=== PATIENT | female | born 1975 | race Asian ===

== ENCOUNTER 2017-09-10 14:06 | Emergency (ER) | payer OTHER | END 2017-09-10 14:45 | disposition home or self-care (01) | LOC: SCSER 14:06 | DX: J04.0 Acute laryngitis (principal); B34.9 Viral infection, unspecified | CPT/HCPCS: 99282 ==

== ENCOUNTER 2022-07-23 02:47 | Inpatient (IN) | payer OTHER, BC ==
[2022-07-23 03:51] VITALS: BMI 20.2
[2022-07-23] MEDS ORDERED: Morphine 4 MG/ML VIAL SLOW IVP PRN ×2 (05:12)
[2022-07-23] MEDS ORDERED: Ondansetron PF 4 MG/2 ML Vial IVP PRN (05:12)
[2022-07-23] MEDS ORDERED: Promethazine HCl 25 MG/ML VIAL IM PRN ×2 (05:12→16:47)
[2022-07-23] MEDS ORDERED: Rib Fracture Protocol IV SCH (05:15)
[2022-07-23] MEDS ORDERED: traMADol HCl 50 MG TAB PO PRN (05:16)
[2022-07-23] MEDS ORDERED: Cyclobenzaprine 10 MG TAB PO PRN (05:16)
[2022-07-23] MEDS: Sodium Chloride 0.9% 1,000 ML IV SCH ×3 (06:11→20:35)
[2022-07-23] MEDS: Acetaminophen 500 MG TAB PO SCH ×2 (06:12→12:06)
[2022-07-23] MEDS: traMADol HCl 50 MG TAB PO SCH ×2 (06:14→12:06)
[2022-07-23 06:19] LABS: #Lymphocytes 0.7 thou/uL (1.20-3.40); #Monocytes 0.7 thou/uL (0.11-0.59); #Neutrophils 11.2 thou/uL (1.40-6.50); %Eosinophils 0.1 % (0.0-10.0); %Lymphocytes 5.5 % (21.0-51.0); %Monocytes 5.2 % (0.0-10.0); %Neutrophils 89.2 % (42.0-75.0); Mean Corpuscular HGB CONC 31.4 g/dL (32.0-36.0); Mean Corpuscular Hemoglobin 27.7 pg (27.0-31.0); Mean Platelet Volume 7.6 fL (7.4-10.4); Platelet Count 256 10x3/uL (130-400); RBC Distribution Width 13.4 % (11.5-14.5); White Blood Cell (WBC) Count 12.5 10x3/uL (4.8-10.8)
[2022-07-23 06:24] LABS: PTT 31.8 sec (22.9-36.1); Prothrombin Time 13.6 sec (12.0-14.7)
[2022-07-23 06:36] LABS: Anion Gap 12 mmol/L (10-20); BUN (Urea Nitrogen) 9 mg/dL (7.0-18.7); Calc. Creatinine Clearance 91 mL/min (70-130); Calcium 8.2 mg/dL (7.8-10.44); Carbon Dioxide 21 mmol/L (22-29); Chloride 107 mmol/L (98-107); Estimated GFR 108; Glucose 102 mg/dL (70-105); Magnesium 1.8 mg/dL (1.6-2.6); Phosphorus 3.1 mg/dL (2.3-4.7); Potassium 4.3 mmol/L (3.5-5.1); Sodium 136 mmol/L (136-145)
[2022-07-23] MEDS ORDERED: Famotidine/PF 20 mg/2ml Vial SLOW IVP SCH (09:00)
[2022-07-23] MEDS ORDERED: TETANUS, DIPHTHERIA TOX,ADULT (TDVAX) 0.5 ML VIAL IM ONE (09:00)
[2022-07-23] MEDS: Polyethylene Glycol 3350 17 GM Packet PO SCH (09:22)
[2022-07-23] MEDS: Senokot S 8.6-50 MG TAB PO SCH ×2 (09:22→20:29)
[2022-07-23] MEDS: Gabapentin 300 MG CAP PO SCH ×3 (09:22→20:30)
[2022-07-23 10:04] LABS: SARS-CoV-2 NAA Rapid Test Not Detected (NotDetected)
[2022-07-23] MEDS ORDERED: Dexmedetomidine 200 MCG/2 ML VIAL ONE (11:24)
[2022-07-23] MEDS ORDERED: Fentanyl 250 MCG/5 ML VIAL ONE (11:24)
[2022-07-23] MEDS ORDERED: Vancomycin 1 GM VIAL ONE ×2 (11:41→15:01)
[2022-07-23] MEDS ORDERED: Thrombin 5000 UNITS/5 ML VIAL ONE ×4 (11:41→15:01)
[2022-07-23] MEDS ORDERED: Sodium Chloride 0.9% 100 ML ONE (12:15)
[2022-07-23] MEDS ORDERED: CEFAZOLIN 2 GM VIAL ONE (12:15)
[2022-07-23] MEDS ORDERED: Calcium Chloride 1 GM/10 ML Abboject SYRINGE ONE (12:26)
[2022-07-23] MEDS ORDERED: NEOSTIGMINE 3 MG/3 ML SYR 3 MG/3 ML SYRINGE ONE (12:26)
[2022-07-23] MEDS ORDERED: PROPOFOL 200 MG/20 ML VIAL ONE (12:26)
[2022-07-23] MEDS ORDERED: Dexamethasone 20 MG/5 ML VIAL ONE (12:26)
[2022-07-23] MEDS ORDERED: Rocuronium Bromide 10 MG/ML (10ML VIAL) ONE (12:26)
[2022-07-23] MEDS ORDERED: Glycopyrrolate 0.2 MG/ML 5 ML SYRINGE ONE (12:26)
[2022-07-23] MEDS ORDERED: Lidocaine 1% PF 5 ML VIAL ONE (12:26)
[2022-07-23] MEDS ORDERED: Ondansetron PF 4 MG/2 ML Vial ONE (12:26)
[2022-07-23] MEDS ORDERED: Acetaminophen/Codeine 30-300mg Tablet PO PRN (16:34)
[2022-07-23] MEDS ORDERED: diphenhydrAMINE 25 MG CAP PO PRN (16:34)
[2022-07-23] MEDS ORDERED: HYDROcodone/Acetaminophen 7.5/325 mg Tablet PO PRN (16:34)
[2022-07-23] MEDS ORDERED: Acetaminophen 325 MG TAB PO PRN (16:34)
[2022-07-23] MEDS ORDERED: tiZANidine HCl 4 MG TAB PO PRN (16:43)
[2022-07-23] MEDS ORDERED: Promethazine HCl 25 MG/ML VIAL IVPB PRN (16:47)
[2022-07-23] MEDS ORDERED: Meperidine HCl/PF 25 MG/ML VIAL SLOW IVP PRN (16:47)
[2022-07-23] MEDS ORDERED: HYDROmorphone 2 MG/ML VIAL SLOW IVP PRN (16:47)
[2022-07-23] MEDS ORDERED: Ondansetron HCl/PF 4 MG/2 ML Vial IVP PRN (16:47)
[2022-07-23] MEDS ORDERED: Morphine Sulfate 2 MG/ML SYRINGE SLOW IVP PRN (16:47)
[2022-07-23] MEDS ORDERED: Promethazine HCl 25 MG/ML VIAL ONE (16:53)
[2022-07-23] MEDS ORDERED: Fentanyl 100 MCG/2 ML VIAL ONE (16:55)
[2022-07-23] MEDS ORDERED: FENTANYL 50 MCG/ML 1 ML VIAL SLOW IVP PRN (17:09)
[2022-07-23] MEDS: CEFAZOLIN 2 GM in Sodium Chloride 0.9% 100 ML IVPB SCH (20:29)
[2022-07-23] MEDS: HYDROcodone/Acetaminophen 7.5/325 mg Tablet PO PRN (20:30)
[2022-07-24] MEDS: CEFAZOLIN 2 GM in Sodium Chloride 0.9% 100 ML IVPB SCH ×2 (03:25→12:35)
[2022-07-24] MEDS: HYDROcodone/Acetaminophen 7.5/325 mg Tablet PO PRN (03:29)
[2022-07-24 07:26] LABS: #Lymphocytes 0.8 thou/uL (1.20-3.40); #Monocytes 1.2 thou/uL (0.11-0.59); #Neutrophils 9.2 thou/uL (1.40-6.50); %Basophils 0.1 % (0.0-1.0); %Lymphocytes 6.9 % (21.0-51.0); %Monocytes 10.4 % (0.0-10.0); %Neutrophils 82.6 % (42.0-75.0); Hemoglobin 10.9 g/dL (12.0-16.0); Mean Corpuscular HGB CONC 32.4 g/dL (32.0-36.0); Mean Corpuscular Hemoglobin 28.7 pg (27.0-31.0); Mean Corpuscular Volume 88.5 fl (78.0-98.0); Mean Platelet Volume 7.4 fL (7.4-10.4); Platelet Count 211 10x3/uL (130-400); RBC Distribution Width 13.3 % (11.5-14.5); White Blood Cell (WBC) Count 11.2 10x3/uL (4.8-10.8)
[2022-07-24 07:31] LABS: Anion Gap 11 mmol/L (10-20); BUN (Urea Nitrogen) 8 mg/dL (7.0-18.7); Calc. Creatinine Clearance 96 mL/min (70-130); Calcium 7.8 mg/dL (7.8-10.44); Carbon Dioxide 20 mmol/L (22-29); Chloride 109 mmol/L (98-107); Estimated GFR 109; Glucose 104 mg/dL (70-105); Magnesium 1.9 mg/dL (1.6-2.6); Sodium 136 mmol/L (136-145)
[2022-07-24 07:34] LABS: Phosphorus 3.3 mg/dL (2.3-4.7)
[2022-07-24] MEDS ORDERED: Acetaminophen/Codeine 30-300mg Tablet PO SCH (08:16)
[2022-07-24] MEDS ORDERED: traMADol HCl 50 MG TAB PO PRN (08:17)
[2022-07-24] MEDS: Senokot S 8.6-50 MG TAB PO SCH ×2 (10:37→20:57)
[2022-07-24] MEDS: Gabapentin 300 MG CAP PO SCH ×3 (10:37→20:57)
[2022-07-24] MEDS: Sodium Chloride 0.9% 1,000 ML IV SCH ×2 (10:39→16:39)
[2022-07-24] MEDS: Acetaminophen 500 MG TAB PO SCH ×3 (10:40→20:57)
[2022-07-24] MEDS ORDERED: traMADol HCl 50 MG TAB PO SCH (12:00)
[2022-07-24] MEDS: Polyethylene Glycol 3350 17 GM Packet PO SCH (14:34)
[2022-07-24] MEDS: traMADol HCl 50 MG TAB PO SCH ×2 (18:08→22:56)
[2022-07-25] MEDS: Acetaminophen 500 MG TAB PO SCH ×4 (03:13→20:24)
[2022-07-25] MEDS: traMADol HCl 50 MG TAB PO SCH ×5 (05:40→23:57)
[2022-07-25] MEDS ORDERED: Acetaminophen/Codeine 30-300mg Tablet PO PRN ×2 (08:11→10:01)
[2022-07-25] MEDS ORDERED: HYDROcodone/Acetaminophen 5/325 mg Tablet PO PRN (08:11)
[2022-07-25] MEDS ORDERED: traMADol HCl 50 MG TAB PO SCH (09:15)
[2022-07-25] MEDS: Gabapentin 300 MG CAP PO SCH ×3 (09:25→20:24)
[2022-07-25] MEDS: Polyethylene Glycol 3350 17 GM Packet PO SCH (09:25)
[2022-07-25] MEDS: Senokot S 8.6-50 MG TAB PO SCH ×2 (09:26→20:24)
[2022-07-25] MEDS: traMADol HCl 50 MG TAB PO PRN ×2 (09:31→23:58)
[2022-07-25] MEDS ORDERED: traMADol HCl 50 MG TAB PO PRN (12:30)
[2022-07-25 20:30] VITALS: TEMP 98.6
[2022-07-26] MEDS: traMADol HCl 50 MG TAB PO SCH ×2 (05:03→11:46)
[2022-07-26] MEDS: Acetaminophen 500 MG TAB PO SCH ×3 (05:03→14:31)
[2022-07-26] MEDS: Senokot S 8.6-50 MG TAB PO SCH (08:33)
[2022-07-26] MEDS: Gabapentin 300 MG CAP PO SCH ×2 (08:34→14:30)
[2022-07-26] MEDS: Polyethylene Glycol 3350 17 GM Packet PO SCH (08:37)
[2022-07-26 12:04] VITALS: BP 106/71
== END 2022-07-26 14:50 | disposition home or self-care (01) | DRG 460 ==
LOC: SURG B 03:38
PROVIDERS: ADMIT Surgery; ATTEND Surgery
PROC: 0RG7071 Fusion of 2 to 7 Thoracic Vertebral Joints with Autologous Tissue Substitute, Posterior Approach, Posterior Column, Open Approach (ICD-10-PCS; principal; 2022-07-23)
PROC: 0RGA071 Fusion of Thoracolumbar Vertebral Joint with Autologous Tissue Substitute, Posterior Approach, Posterior Column, Open Approach (ICD-10-PCS; 2022-07-23)
PROC: 00NX0ZZ Release Thoracic Spinal Cord, Open Approach (ICD-10-PCS; 2022-07-23)
PROC: 00NY0ZZ Release Lumbar Spinal Cord, Open Approach (ICD-10-PCS; 2022-07-23)
PROC: 30233N1 Transfusion of Nonautologous Red Blood Cells into Peripheral Vein, Percutaneous Approach (ICD-10-PCS; 2022-07-23)
DX: S22.081A Stable burst fracture of T11-T12 vertebra, initial encounter for closed fracture (principal); D62 Acute posthemorrhagic anemia; Z20.822 Contact with and (suspected) exposure to COVID-19; V49.9XXA Car occupant (driver) (passenger) injured in unspecified traffic accident, initial encounter
CPT/HCPCS: 36415; 36430; 72148; 80048; 83735; 84100; 85025; 85610; 85730; 86850; 86900; 86901; 93970; C1713; C1768; C1776; J1100; J2405; J2550; J2704; J3010; J3370; J3490; J7050; P9016; U0002